=== PATIENT | male | born 1960 | race African-American/Black ===

== ENCOUNTER 2016-11-24 12:05 | Emergency (ER) | payer OTHER ==
[~2016-11-24] VITALS: Ht 193 cm; Wt 115.7 kg
--- NOTE | ~2016-11-24 | EKG ---
[place] [address] 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
[2016-11-24] MEDS ORDERED: OMEPRAZOLE 20 M20 M1 PO ×2 (12:19→12:22)
[2016-11-24] MEDS ORDERED: MYFORTIC360 MG PO (12:20)
[2016-11-24] MEDS ORDERED: PREDNISONE 5 MG5 M1 PO (12:21)
[2016-11-24] MEDS ORDERED: PROGRAF0.5 MG PO (12:21)
[2016-11-24] MEDS ORDERED: SENSIPAR90 MG PO (12:22)
[2016-11-24] MEDS ORDERED: LISINOPRIL20 MG PO (12:23)
[2016-11-24] MEDS ORDERED: ASPIR 8181 MG PO (12:23)
[2016-11-24] MEDS ORDERED: MINOXIDIL10 MG PO (12:24)
[2016-11-24 12:33] LABS: ABSOLUTE NEUTROPHILS 7.1 thou/uL (1.4-8.2); BASOPHILS 0.9 % (0.0-2.0); EOSINOPHILS 0.5 % (0.0-3.0); HEMATOCRIT 45.5 % (42.0-52.0); HEMOGLOBIN 15.1 gm/dL (14.0-18.0); MCH 30.1 pg (26.0-34.0); MCHC 33.3 g/dL (28.0-37.0); MCV 90.4 fL (80.0-100.0); MONOCYTES 7.3 % (1.0-8.0); PLATELET COUNT 195 thou/uL (150-400); POLYS 66.3 % (36.0-66.0); RBC 5.03 mil/uL (4.50-6.00); RDW 14.9 % (10.5-14.5); WBC 10.7 thou/uL (4.0-11.0)
[2016-11-24 12:36] LABS: MANUAL DIFF NO
[2016-11-24] MEDS ORDERED: ATORVASTATIN CA40 MG PO (12:38)
[2016-11-24] MEDS ORDERED: VITAMIN D2000 UNIT PO (12:38)
[2016-11-24] MEDS ORDERED: MAGNESIUM500 MG PO (12:39)
[2016-11-24 12:42] LABS: CALCIUM 9.3 mg/dL (8.5-10.1); CREATININE 1.4 mg/dL (0.7-1.3)
[2016-11-24 12:55] LABS: TROPONIN-I 0.09 ng/mL (<0.04-0.07)
[2016-11-24 13:36] VITALS: BP 126/88
[2016-11-24] MEDS ORDERED: LEVOTHYROXINE0.05 MG PO (18:03)
[2016-11-24] MEDS ORDERED: TACROLIMUS1 MG PO (18:04)
[2016-11-24] MEDS ORDERED: MAG-OXIDE400 MG PO (18:07)
[2016-11-24] MEDS ORDERED: LOPRESSOR25 PO (18:08)
[2016-11-24] MEDS ORDERED: ALPRAZOLAM 0.50.5 M1 PO (18:10)
[2016-11-24] MEDS ORDERED: MINOXIDIL2.5 MG PO (18:19)
== END 2016-11-24 13:40 | disposition left against medical advice (07) ==
LOC: ER 12:05
PROVIDERS: Nurse Practitioner
DX: R07.89 Other chest pain (principal); Z79.82 Long term (current) use of aspirin

== ENCOUNTER 2016-11-24 15:20 | Observation (INO) | payer OTHER ==
[~2016-11-24] VITALS: Ht 193 cm; Wt 123.1 kg
--- NOTE | ~2016-11-24 | EKG ---
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
--- NOTE | ~2016-11-24 | HC ---
[facility] [place] [address] CONSULTATION Name: MARCUS DEVRIES Room #: [facility] M.RPortillo#: [id number] Admission: 11/24/16 Attend Phys: Manoj Vasquez Discharge: Date of : 60 Report #: [id number] THIS REPORT FOR: //name// CC: NICKY physician/PCP Manoj Vasquez DATE OF SERVICE: 11/24/2016 INDICATION: Chest pain. HISTORY OF PRESENT ILLNESS: This is a 56-year-old gentleman presenting with 2 days of chest discomfort. He describes a pressure in the substernal area, nonradiating. It has been coming and going for the past 2 days. There is no history of shortness of breath, fever, chills, cough or lightheadedness. He does report having some diaphoresis. He initially presented earlier today for an evaluation, but decided to leave [place]. His cloth bale header is at [facility]. However, when he spoke to his cloth bale header, he was told to come back to the hospital. The ECG reveals atrial flutter with a heart rate of 134 beats per minute. The patient denies any history of arrhythmias or [place]. PAST MEDICAL HISTORY: End-stage renal disease, status post renal transplant in 2009. History of hypertension, hypercholesterolemia, hypothyroidism, and GERD. ALLERGIES: None. MEDICATIONS: Please see the MAR for full listing. SOCIAL HISTORY: Negative for tobacco use. FAMILY HISTORY: Negative for premature CAD. REVIEW OF SYSTEMS: A full 10-point review of systems is performed. Only the pertinent positives and negatives are described in the HPI. PHYSICAL EXAMINATION: VITAL SIGNS: Blood pressure is 118/70, heart rate is 130 beats per minute. GENERAL APPEARANCE: This is an overweight male in no acute respiratory distress. HEAD AND EYES: Normocephalic. Sclerae are anicteric. ENT: Oral mucosa moist. NECK: Supple. LUNGS: Clear to auscultation, no rales. CARDIAC: Tachycardic. S1, S2 positive. ABDOMEN: Soft, nontender. Bowel sounds positive. EXTREMITIES: No major joint deformities. No cyanosis. [facility] [address] [place] [address] CONSULTATION Name: MARCUS DEVRIES Room #: 206-P [facility] M.R.#: [id number] Admission: 11/24/16 Attend Phys: Manoj Vasquez Discharge: Date of : 60 Report #: [id number] LABORATORY VALUES: White count is 10.7, hemoglobin is 15.1. Sodium is 138, creatinine is 1.4. Troponin is 0.09. ECG reveals atrial flutter with a variable AV block, nonspecific ST segment abnormalities. ASSESSMENT AND PLAN: 1. Chest pain syndrome, may be related to the arrhythmia. Other considerations include ischemia versus reflux. The initial troponin is in the indeterminate range. We will need serial troponins checked as well. 2. Atrial flutter, appears to be of new onset. We will start IV Cardizem for rate control. He will need an echocardiogram to rule out structural heart disease. 3. Hypertension, continue with medications. 4. Renal disease status post transplant, defer to Nephrology. 5. Hypercholesterolemia, continue with statin therapy. 6. Gastroesophageal reflux disease, continue with PPI. Thank you for allowing me to participate in the care of your patient. <ELECTRONICALLY SIGNED> By: Vincent Luu MD 11/25/16 2038 1703 1810 Vincent Luu MD /nt
--- NOTE | ~2016-11-24 | 2DMMODE ---
[facility] [address] [place] [address] 2 D/M-MODE ECHOCARDIOGRAM Name: MARCUS DEVRIES Room #: 206-P ADM IN M.R.#: [id number] Admission: 11/24/16 Attend Phys: Manoj White Discharge: Date of : 60 Date of Service: 11/25/16 1345 Report #: [id number] THIS REPORT FOR: //name// APPROVED REPORT Study performed: 11/25/2016 08:42:06 EXAM: Comprehensive 2D, Doppler, and color-flow Echocardiogram Patient Location: Bedside Room #: 206 Status: routine Other Information Study Quality: Adequate Indications Arrhythmia Hypertension/HDD 2D Dimensions RVDd: 34.69 mm LVEF(%): 64.87 (>50%) IVSd: 19.82 (7-11mm) LVOT Diam: 21.46 (18-24mm) LVDd: 44.09 mm PWd: 17.99 (7-11mm) Ascending Ao: 32.51 (22-36mm) LVDs: 28.53 (25-40mm) Aortic Root: 34.84 mm IVC: 20.00 mm Morales's LVEF: 64.87 % Volumes Left Atrial Volume (Systole) Single Plane 4CH: 73.03 mL Single Plane 2CH: 89.58 mL LA ESV Index: 35.00 mL/m2 Aortic Valve AoV Peak Armand.: 1.31 m/s AO Peak Gr.: 6.82 mmHg LVOT Max P.88 mmHg LVOT Max V: 1.21 m/s GAYATRI Vmax: 3.35 cm2 Mitral Valve MV Decel. Time: 175.80 ms MV E Max Armand.: 0.74 m/s IVRT: 101.50 ms Pulmonary Valve [facility] [place] [place] [address] 2 D/M-MODE ECHOCARDIOGRAM Name: MARCUS DEVRIES Room #: [address] [place] [address] [place] .R.#: [id number] Admission: 11/24/16 Attend Phys: Manoj White Discharge: Date of : 60 Date of Service: 11/25/16 1345 Report #: [id number] Peak Armand.: 1.07 m/s PV Peak Gr.: 4.57 mmHg Tricuspid Valve TR Peak Armand.: 2.49 m/s RAP Estimate: 8.00 mmHg TR Peak Gr.: 24.78 mmHg Left Ventricle The left ventricle is normal size. Severe left ventricular hypertrophy is present. The overall left ventricular systolic function appears normal. LVEF is 60-65%. This study is not technically sufficient to allow evaluation of the LV diastolic function due to atrial flutter. Right Ventricle The right ventricle is normal size. The right ventricular systolic function is normal. Atria Left atrium is mildly dilated. The right atrium size is normal. Aortic Valve The aortic valve is normal in structure. No aortic regurgitation is present. There is no aortic valvular stenosis. Mitral Valve The mitral valve is normal in structure. Trace mitral regurgitation. No evidence of mitral valve stenosis. Tricuspid Valve The tricuspid valve is normal in structure. Trace tricuspid regurgitation. The right atrial pressure is estimated at 10 mmHg. PAP is estimated at 35 mmHg. Pulmonic Valve The pulmonary valve is normal in structure. There is no pulmonic valvular regurgitation. Great Vessels The aortic root is normal in size. IVC is normal in size and collapses <50% with inspiration. <Conclusion> The left ventricle is normal size. The overall left ventricular systolic function appears normal. Severe left ventricular [place] [address] 2 D/M-MODE ECHOCARDIOGRAM Name: MARCUS DEVRIES Room #: [address] [place] [address] [place] M.R.#: [id number] Admission: 11/24/16 Attend Phys: Manoj White Discharge: Date of : 60 Date of Service: 11/25/16 1345 Report #: [id number] The right ventricle is normal size. Left atrium is mildly dilated. The aortic valve is normal in structure. Trace mitral regurgitation. Trace tricuspid regurgitation. The right atrial pressure is estimated at 10 mmHg. PAP is estimated at 35 mmHg. <ELECTRONICALLY SIGNED> By: Vincent Luu MD 11/25/16 1345 1345 1345 Vincent Luu MD /WONG
[~2016-11-24 15:20] MED LIST: ASPIR 8181 MG PO; ATORVASTATIN CA40 MG PO; LISINOPRIL20 MG PO; MAGNESIUM500 MG PO; MINOXIDIL10 MG PO; MYFORTIC360 MG PO; OMEPRAZOLE 20 M20 M1 PO; PREDNISONE 5 MG5 M1 PO; PROGRAF0.5 MG PO; SENSIPAR90 MG PO; VITAMIN D2000 UNIT PO
[2016-11-24 15:21] VITALS: BP 117/69
[2016-11-24 17:04] VITALS: BP 103/76
[2016-11-24 17:30] VITALS: BP 129/78
[2016-11-24] MEDS ORDERED: LEVOTHYROXINE0.05 MG PO (18:03)
[2016-11-24] MEDS ORDERED: TACROLIMUS1 MG PO (18:04)
[2016-11-24] MEDS ORDERED: MAG-OXIDE400 MG PO (18:07)
[2016-11-24] MEDS ORDERED: LOPRESSOR25 PO (18:08)
[2016-11-24] MEDS ORDERED: ALPRAZOLAM 0.50.5 M1 PO (18:10)
[2016-11-24] MEDS ORDERED: MINOXIDIL2.5 MG PO (18:19)
[2016-11-24 19:27] VITALS: BP 107/68
[2016-11-24 23:22] VITALS: BP 98/61
[2016-11-25 04:08] VITALS: BP 114/63
[2016-11-25 04:44] LABS: CALCIUM 8.3 mg/dL (8.5-10.1); CREATININE 1.2 mg/dL (0.7-1.3); POTASSIUM 3.7 mmol/L (3.5-5.1)
[2016-11-25 04:55] LABS: ALBUMIN 3.5 g/dL (3.4-5.0); PHOSPHORUS 3.4 mg/dL (2.5-4.9); TROPONIN-I 0.13 ng/mL (<0.04-0.07)
[2016-11-25 09:55] VITALS: BP 114/82
[2016-11-25 15:28] VITALS: BP 122/76
[2016-11-25 19:58] VITALS: BP 120/80
[2016-11-26 03:51] VITALS: BP 124/87
[2016-11-26 08:41] VITALS: BP 130/96
[2016-11-26 09:49] LABS: ALBUMIN 3.7 g/dL (3.4-5.0); CALCIUM 9.8 mg/dL (8.5-10.1); CREATININE 1.4 mg/dL (0.7-1.3); PHOSPHORUS 3.9 mg/dL (2.5-4.9); POTASSIUM 4.2 mmol/L (3.5-5.1); TROPONIN-I 0.12 ng/mL (<0.04-0.07)
[2016-11-26 12:00] VITALS: BP 107/77
[2016-11-26] MEDS ORDERED: ELIQUIS5 MG PO (13:04)
[2016-11-26 13:10] VITALS: BP 130/96
[2016-11-26 14:03] VITALS: BP 130/96
== END 2016-11-26 13:35 | disposition home or self-care (01) ==
LOC: ER 15:20 → EROBS 15:30 → 2N 16:34
PROVIDERS: Hospitalist
DX: R07.89 Other chest pain (principal); K21.9 Gastro-esophageal reflux disease without esophagitis; I48.92 Unspecified atrial flutter; I10 Essential (primary) hypertension; N28.9 Disorder of kidney and ureter, unspecified; E78.00 Pure hypercholesterolemia, unspecified; Z94.0 Kidney transplant status

== ENCOUNTER 2018-10-11 22:04 | Emergency (ER) | payer OTHER ==
[~2018-10-11] VITALS: Ht 193 cm; Wt 110.7 kg
[~2018-10-11 22:04] MED LIST changes: +ALPRAZOLAM 0.50.5 M1 PO; +ELIQUIS5 MG PO; +GLUCOPHAGE XR500 MG PO; +LEVOTHYROXINE0.05 MG PO; +LOPRESSOR25 PO; +MAG-OXIDE400 MG PO; +MINOXIDIL2.5 MG PO; +TACROLIMUS1 MG PO
[2018-10-11] MEDS ORDERED: JARDIANCE10 MG PO (22:29)
[2018-10-11 23:09] VITALS: BP 107/82
== END 2018-10-11 23:10 | disposition home or self-care (01) ==
LOC: ER 22:04
DX: E11.65 Type 2 diabetes mellitus with hyperglycemia (principal)